=== PATIENT | male | born 1970 | race Caucasian/White ===

== ENCOUNTER 2018-11-19 10:21 | Emergency (ER) | payer OTHER ==
[2018-11-19] MEDS ORDERED: LIDOCAINE VISCOUS 2% 15 ML UDC MM STA (11:19)
[2018-11-19] MEDS ORDERED: MAG HYDROX/AL HYDROX/SIMETH 30 ML UDC PO STA (11:19)
--- NOTE | 2018-11-19 11:21 | ED Physician Documentation ---
PD HPI CHEST PAIN - Stated complaint Stated Complaint: CHEST DISCOMFORT - Chief complaint Chief Complaint: Heent - History obtained from History obtained from: Patient - History of Present Illness Timing - onset: How many days ago (4) Timing - details: Waxing and waning Quality: Aching Location: Substernal Similar symptoms before: Has not had sx before - Treatment prior to arrival Treatment prior to arrival: Tums and Mucinex without relief. - Additional information Additional information: The patient is a 48-year-old male who presents with substernal chest pain that he describes as "really bad heartburn." His pain started 4 days ago and has been waxing and waning since that time. He states that it is harder to swallow, and that he has had frequent burping. He denies associated nausea or vomiting, shortness of breath, or diaphoresis. He has been using Tums and Mucinex without relief. He denies history of similar symptoms in the past. Cardiac risk factors are positive for cigarette smoking and for family history in that his mother had an SD at age 50. He denies history of diabetes, hypertension, or hyperlipidemia. Review of Systems Constitutional: denies: Fever, Fatigue Ears: denies: Tinnitus/ringing Nose: denies: Congestion Throat: denies: Sore throat Cardiac: reports: Chest pain / pressure. denies: Palpitations Respiratory: denies: Dyspnea, Cough GI: denies: Abdominal Pain, Nausea, Vomiting : denies: Dysuria Skin: denies: Rash Musculoskeletal: denies: Neck pain, Extremity swelling Neurologic: denies: Focal weakness, Numbness, Headache PD PAST MEDICAL HISTORY - Past Medical History Cardiovascular: None Respiratory: None Endocrine/Autoimmune: None GI: None - Present Medications Home Medications: Ambulatory Orders Medication Instructions Recorded Confirmed No Known Home Medications 11/19/18 11/19/18 - Allergies Allergies/Adverse Reactions: Allergies Allergy/AdvReac Type Severity Reaction Status Date / Time No Known Drug Allergies Allergy Verified 11/19/18 10:43 - Social History Does the pt smoke?: Yes Smoking Status: Current every day smoker PD ED PE NORMAL - Vitals Vital signs reviewed: Yes (normal) - General General: Alert and oriented X 3, Well developed/nourished - HEENT HEENT: Atraumatic, Pharynx benign - Neck Neck: No adenopathy, No JVD - Cardiac Cardiac: RRR - Respiratory Respiratory: No respiratory distress, Clear bilaterally - Abdomen Abdomen: Soft, Non tender, Other (Scaphoid abdomen) - Back Back: No CVA TTP - Derm Derm: No rash - Extremities Extremities: No edema, No calf tenderness / cord - Neuro Neuro: Alert and oriented X 3, No motor deficit, Normal speech Results - Vitals Vitals: Vital Signs - 24 hr 11/19/18 11/19/18 11/19/18 10:39 11:54 11:55 Temperature 36.4 C L 36.6 C Heart Rate 68 59 L Respiratory 16 12 Rate Blood Pressure 126/80 117/77 117/77 O2 Saturation 96 98 11/19/18 13:10 Temperature Heart Rate 62 Respiratory 16 Rate Blood Pressure 132/80 H O2 Saturation Oxygen O2 Source Room air - EKG (time done) 10:45 Rate: Rate (enter#) (64) Rhythm: NSR [place]: Normal Intervals: Normal NE QRS: Normal Ischemia: Normal ST segments Computer interpretation: Agree with computer - Labs Labs: Laboratory Tests 11/19/18 11/19/18 11/19/18 11:32 11:32 11:32 WBC 9.2 RBC 4.83 Hgb 16.4 Hct 46.4 MCV 96.1 H MCH 33.9 H MCHC 35.2 RDW 13.8 Plt Count 184 MPV 8.1 Neut # (Auto) 7.0 H Lymph # (Auto) 1.3 L [place] # (Auto) 0.6 Eos # (Auto) 0.2 Baso # (Auto) 0.0 Absolute Nucleated RBC 0.00 Nucleated RBC % 0.0 Sodium 140 Potassium 4.2 Chloride 102 Carbon Dioxide 26 Anion Gap 12.0 BUN 15 Creatinine 0.9 Estimated GFR (MDRD) 91 Glucose 97 Calcium 9.6 Total Bilirubin 0.8 AST 26 ALT 31 Alkaline Phosphatase 57 Troponin I < 0.04 Total Protein 8.3 H Albumin 4.4 Globulin 3.9 Albumin/Globulin Ratio 1.1 Lipase 31 Group A Strep Rapid 11/19/18 12:20 WBC RBC Hgb Hct MCV MCH MCHC RDW Plt Count MPV Neut # (Auto) Lymph # (Auto) [place] # (Auto) Eos # (Auto) Baso # (Auto) Absolute Nucleated RBC Nucleated RBC % Sodium Potassium Chloride Carbon Dioxide Anion Gap BUN Creatinine Estimated GFR (MDRD) Glucose Calcium Total Bilirubin AST ALT Alkaline Phosphatase Troponin I Total Protein Albumin Globulin Albumin/Globulin Ratio Lipase Group A Strep Rapid Negative - Rads (name of study) CXR Radiology: Prelim report reviewed, EMP read contemporaneously, See rad report (No focal consolidation.) PD MEDICAL DECISION MAKING - ED course Complexity details: reviewed results, re-evaluated patient, considered differential, d/w patient ED course: The patient's presentation is most consistent with gastroesophageal reflux. He may also have viral pharyngitis, with oropharyngeal erythema but a negative rapid strep screen. Cardiac chest pain was considered, but is unlikely. His EKG and troponin are normal. Chest x-ray reveals no radiographic cardiopulmonary abnormality. Treatment in the emergency department included GI cocktail which did improve the substernal chest discomfort, but did not help his sore throat. There is no clinical evidence of peritonsillar abscess. I discussed with him the diagnosis, symptomatic treatment and outpatient follow- up, as well as potentially worrisome signs or symptoms that should prompt reevaluation in the emergency department. Departure - Departure Disposition: 01 Home, Self Care Clinical Impression: Viral pharyngitis GERD (gastroesophageal reflux disease) Qualifiers: Esophagitis presence: esophagitis presence not specified Qualified Code(s): K21.9 - Gastro-esophageal reflux disease without esophagitis Condition: Stable Instructions: ED GERD, ED Pharyngitis Viral Follow-Up: CHERYL Storm [Provider Group] Comments: Minimize alcohol, coffee, and kiran. You can drink liquid antacid, such as Maalox or Mylanta recurrent symptoms. Follow-up with your primary physician within 2 weeks. Call to schedule an appointment. Return to the emergency department if you develop increasing difficulty swallowing, increasing chest pain or shortness of breath, or otherwise worsening symptoms. Discharge Date/Time: 11/19/18 13:13
[2018-11-19 11:41] LABS: BASOPHILS % (AUTO) 0.5 %; EOSINOPHILS # (AUTO) 0.2 10^3/uL (0.0-0.7); HGB - HEMOGLOBIN 16.4 g/dL (14.0-18.0); LYMPHOCYTES # (AUTO) 1.3 10^3/uL (1.5-3.5); LYMPHOCYTES % (AUTO) 14.5 %; MEAN CORPUSCULAR HEMOGLOBIN 33.9 pg (27.0-31.0); MEAN CORPUSCULAR HGB CONC 35.2 g/dL (32.0-36.0); MEAN CORPUSCULAR VOLUME 96.1 fL (80.0-94.0); MEAN PLATELET VOLUME 8.1 fL (7.4-11.4); MONOCYTES # (AUTO) 0.6 10^3/uL (0.0-1.0); MONOCYTES % (AUTO) 6.7 %; NEUTROPHILS % (AUTO) 76.3 %; PLT - PLATELET COUNT 184 10^3/uL (130-450); RED BLOOD COUNT 4.83 10^6/uL (4.70-6.10); RED CELL DISTRIBUTION WIDTH 13.8 % (12.0-15.0); WHITE BLOOD COUNT 9.2 x10^3/uL (4.8-10.8)
[2018-11-19 11:51] LABS: ALBUMIN 4.4 g/dL (3.2-5.5); ALBUMIN/GLOBULIN RATIO 1.1 (1.0-2.2); BILIRUBIN,TOTAL 0.8 mg/dL (0.2-1.0); CALCIUM 9.6 mg/dL (8.5-10.3); CREATININE 0.9 mg/dL (0.6-1.2); TOTAL PROTEIN 8.3 g/dL (6.7-8.2)
--- NOTE | 2018-11-19 12:12 | XRAY Report ---
Reason: chest pain Procedure Date: 11/19/2018 Accession Number: [id number] / [id number] Procedure: XR - Chest 1 View X-Ray CPT Code: 00632 FULL RESULT: EXAM: CHEST RADIOGRAPHY EXAM DATE: 11/19/2018 11:59 AM. CLINICAL HISTORY: Chest pain. COMPARISON: None. TECHNIQUE: 1 view. FINDINGS: Lungs/Pleura: No focal opacities evident. No pleural effusion. No pneumothorax. Mediastinum: Within exam limitations, the cardiomediastinal contour is normal. Other: None. IMPRESSION: No focal consolidation RADIA
[2018-11-19 13:15] VITALS: BP 132/80
== END 2018-11-19 13:13 | disposition home or self-care (01) ==
LOC: EDSEX → ED 10:21
DX: K21.9 Gastro-esophageal reflux disease without esophagitis (principal); J02.8 Acute pharyngitis due to other specified organisms; B97.89 Other viral agents as the cause of diseases classified elsewhere; F17.210 Nicotine dependence, cigarettes, uncomplicated; Z82.49 Family history of ischemic heart disease and other diseases of the circulatory system
CPT/HCPCS: 36415; 71045; 80053; 83690; 84484; 85025; 87070; 87430; 93005; 99283; A9270

== ENCOUNTER 2019-06-11 07:52 | Outpatient (CLI) | payer OTHER ==
--- NOTE | 2019-06-11 15:13 | MRI Report ---
Reason: CERVICALGIA Procedure Date: 06/11/2019 Accession Number: [id number] / [id number] Procedure: MRI - Cervical Spine W/O CPT Code: Final Report FULL RESULT: EXAM: MRI CERVICAL SPINE WITHOUT CONTRAST EXAM DATE: 06/11/2019 09:36 AM. CLINICAL HISTORY: CERVICALGIA. COMPARISONS: None. TECHNIQUE: Multiplanar, multisequence T1-weighted and fluid-sensitive sequences of the cervical spine without contrast. Other: None. FINDINGS: Neurologic Structures: The visualized posterior fossa structures are unremarkable. No signal abnormality in the visualized spinal cord. Alignment: No scoliosis or spondylolisthesis. Bone Marrow: No gross fractures or bone lesions. No marrow edema. Interspace Levels/Facets: C1-C2: Unremarkable. C2-C3: Unremarkable. C3-C4: Unremarkable. C4-C5: Unremarkable. C5-C6: There is a broad-based disk bulge. There is moderate central canal narrowing. There is mild right and moderate left neural foraminal narrowing. C6-C7: Minimal disk bulge. No significant central canal narrowing. Mild bilateral neural foraminal narrowing. C7-T1: Unremarkable. Musculature: Normal. No edema or fatty atrophy. Other: The paravertebral and prevertebral soft tissues are normal. IMPRESSION: 1. C5-C6 disk bulge with moderate central canal narrowing. 2. Moderate left C5-C6 neural foraminal narrowing. 3. Mild right C5-C6 and moderate bilateral C6-C7 neural foraminal narrowing. RADIA
== END 2019-06-11 07:53 | disposition home or self-care (01) ==
LOC: DI 07:52
PROVIDERS: ATTEND General Practice
DX: M50.222 Other cervical disc displacement at C5-C6 level (principal); M48.02 Spinal stenosis, cervical region
CPT/HCPCS: 72141